=== PATIENT | female | born 1995 | race Caucasian/White ===

== ENCOUNTER 2017-12-20 04:23 | Emergency (ER) | payer SELFPAY ==
[2017-12-20 04:27] VITALS: BP 135/86
--- NOTE | 2017-12-20 04:33 | ER Report ---
History and Physical Time Seen By MD: 04:26 HPI/ROS CHIEF COMPLAINT: Long Term clearance HISTORY OF PRESENT ILLNESS: 22-year-old female brought in by police for senior living clearance. Patient denies any complaints. Patient denies any significant past medical history. REVIEW OF SYSTEMS: Respiratory: No cough, no dyspnea. Cardiovascular: No chest pain, no palpitations. Gastrointestinal: No vomiting, no abdominal pain. Musculoskeletal: No back pain. Allergies: Coded Allergies: hydrocodone (Verified Allergy, Intermediate, 12/20/17) Home Meds No Active Prescriptions or Reported Meds Reviewed Nurses Notes: Yes Old Medical Records Reviewed: Yes Constitutional Vital Sign - Last 24 Hours 12/20/17 04:27 Temp 98.3 Pulse 94 Resp 16 B/P (MAP) 135/86 Pulse Ox 96 O2 Delivery Room Air Physical Exam General Appearance: The patient is alert, has no immediate need for airway protection and no current signs of toxicity., Slurred speech consistent with alcohol intoxication HEENT: Pupils equal and round no injection. TMs normal, oropharynx without redness or exudate Respiratory: Chest is non tender, lungs are clear to auscultation. Cardiac: regular rate and rhythm Gastrointestinal: Abdomen is soft and non tender, no masses, bowel sounds normal. Musculoskeletal: Neck: Neck is supple and non tender. Extremities have full range of motion and are non tender. Skin: No rashes or lesions. DIFFERENTIAL DIAGNOSIS: After history and physical exam differential diagnosis was considered for alcohol intoxication, senior living clearance, polysubstance abuse Medical Decision Making ED Course/Re-evaluation ED Course Patient was admitted to an examination room. H&P was done. The differential diagnosis was considered. On clinical examination. Patient has no conical findings. She has normal vital signs. She voices no complaints. She is medically cleared for senior living admission. Decision to Disposition Date: December 20, 2017 Decision to Disposition Time: 04:31 Depart Departure Latest Vital Signs Vital Signs Date Time Temp Pulse Resp B/P (MAP) Pulse Ox O2 Delivery O2 Flow Rate FiO2 12/20/17 04:27 98.3 94 16 135/86 96 Room Air Impression: Primary Impression: Medical clearance for incarceration Additional Impression: Alcohol intoxication Condition: Improved [facility] New Scripts No Active Prescriptions or Reported Meds Patient Instructions: Alcohol Intoxication (ED) Additional Instructions: Medical cleared for senior living admission Problem Qualifiers Additional Impression: Alcohol intoxication Complication of substance-induced condition: uncomplicated Qualified Codes: F10.920 - Alcohol use, unspecified with intoxication, uncomplicated ALLAN MONZON DO December 20, 2017 04:33
== END 2017-12-20 04:45 ==
LOC: ER 04:28
DX: F10.920 Alcohol use, unspecified with intoxication, uncomplicated (principal)
CPT/HCPCS: 99282

== ENCOUNTER → 2017-12-20 | Outpatient (CLI) | payer SELFPAY | LOC: LAB 04:33 | PROVIDERS: ATTEND Nurse Practitioner | DX: Z02.83 Encounter for blood-alcohol and blood-drug test (principal) ==